=== PATIENT | female | born 1980 | race Caucasian/White ===

== ENCOUNTER 2016-09-27 17:44 | Emergency (ER) | payer MEDICAID ==
[2016-09-27] MEDS ORDERED: metroNIDAZOLE 250 MG TABLET PO STA (20:08)
[2016-09-27] MEDS ORDERED: metroNIDAZOLE 250 MG TABLET PO ONE (20:15)
== END 2016-09-27 20:18 | disposition home or self-care (01) ==
DX: N76.0 Acute vaginitis (principal); B96.89 Other specified bacterial agents as the cause of diseases classified elsewhere; N88.8 Other specified noninflammatory disorders of cervix uteri
CPT/HCPCS: 81003; 81025; 87210; 87220; 87491; 87591; 99283; A9270